=== PATIENT | male | born 1970 | race Two or more races ===

== ENCOUNTER 2019-12-03 01:33 | Emergency (ER) | payer SELFPAY ==
[~2019-12-03] VITALS: Ht 170.2 cm; Wt 86.2 kg
[~2019-12-03 01:33] MED LIST: methylPREDNISolone SOD SUCC 125 MG/2 ML VL ONE
[2019-12-03] MEDS ORDERED: ALBUTEROL SULF 2.5 MG/0.5ML(0.5%) NEB SOLN NEB ONE ×2 (01:45)
[2019-12-03] MEDS ORDERED: methylPREDNISolone SOD SUCC 125 MG/2 ML VL IV ONE ×2 (01:45→03:30)
[2019-12-03] MEDS ORDERED: IPRATROPIUM BROM 0.5 MG/2.5ML INH SOL NEB ONE (01:45)
[2019-12-03] MEDS ORDERED: levoFLOXacin 250 MG TAB PO ONE (03:30)
[2019-12-03 04:28] VITALS: BP 138/88
== END 2019-12-03 04:35 | disposition home or self-care (01) ==
LOC: ER 01:33
DX: J44.9 Chronic obstructive pulmonary disease, unspecified (principal); R06.02 Shortness of breath
CPT/HCPCS: 71045; 94640; 96374; 99283; J2930; J7644